=== PATIENT | female | born 1985 | race Caucasian/White ===

== ENCOUNTER → 2018-04-05 08:50 | Outpatient (CLI) | payer OTHER, SELFPAY ==
[2018-04-05 10:08] LABS: HCG,Quantitative 142 mIU/mL
== END ==
PROVIDERS: Visit Provider Nurse Practitioner Obstetrics & Gynecology
DX: Z32.00 Encounter for pregnancy test, result unknown (principal)
CPT/HCPCS: 36415; 84702

== ENCOUNTER → 2018-04-15 11:13 | Outpatient (CLI) | payer OTHER, SELFPAY ==
[2018-04-15 13:15] LABS: HCG,Quantitative 7304 mIU/mL
== END ==
PROVIDERS: Family Provider Family Medicine; Visit Provider Nurse Practitioner Obstetrics & Gynecology
DX: Z32.00 Encounter for pregnancy test, result unknown (principal)
CPT/HCPCS: 36415; 84702

== ENCOUNTER → 2018-04-24 17:05 | Outpatient (CLI) | payer OTHER, SELFPAY ==
[2018-04-24 17:47] LABS: Basophils % 0.3 % (0.1-2.0); Eosinophils # 0.2 K/mm3 (0.0-0.4); Eosinophils % 1.4 % (0.1-12.0); Hematocrit 37.9 % (37.0-47.0); Hemoglobin 12.9 g/dL (12.2-16.2); Mean Corpuscular Hemoglobin 29.4 pg (27.0-31.2); Mean Corpuscular Volume 86.3 fl (81-99); Mean Platelet Volume 7.3 fl (7.4-10.4); Monocytes # 0.5 K/mm3 (0.1-1.0); Monocytes % 4.7 % (1.7-9.3); Neutrophils # 8.4 K/mm3 (1.8-7.8); Neutrophils % 75.6 % (37.0-80.0); Platelet Count 230 K/mm3 (142-424); Red Blood Count 4.39 M/mm3 (4.20-5.40); Red Cell Distribution Width 13.6 % (11.5-17.5); White Blood Count 11.1 K/mm3 (4.8-10.8)
[2018-04-26 08:23] LABS: HIV Screen 4th Generation wRfx Non Reactive (Non Reactive)
[2018-04-26 13:14] LABS: Hepatitis B Surface Antigen Negative (Negative); Hepatitis C Antibody <0.1 s/co ratio (0.0-0.9); Rapid Plasma Reagin Ab Titer Non Reactive (NonRea<1:1)
== END ==
PROVIDERS: Family Provider Family Medicine; PCP Family Medicine; Visit Provider Nurse Practitioner Obstetrics & Gynecology
DX: Z34.90 Encounter for supervision of normal pregnancy, unspecified, unspecified trimester (principal)
CPT/HCPCS: 36415; 85025; 86592; 86703; 86762; 86850; 87340; 87380; G0432

== ENCOUNTER → 2018-05-03 09:44 | Outpatient (CLI) | payer OTHER, SELFPAY ==
--- NOTE | 2018-05-03 09:47 | US_ITS ---
US OB transvaginal HISTORY: ITS.REASON: US OB Dates ORDERING PHYSICIAN: Ferdinand Cyr MD PATIENT AGE: 32 years COMPARISON: None FINDINGS: An intrauterine gestational sac is present with a pole with a crown-rump length of 1.59cm correlating to gestational age of 8w0d. heart tones are present with an FHR of 178 bpm's. Yolk sac is noted. Adnexa: 1.6 cm left corpus luteum cyst. IMPRESSION: Live intrauterine gestation at 8 weeks 0 days. Estimated due date by ultrasound is 12/13/2018
== END ==
PROVIDERS: Family Provider Family Medicine; PCP Family Medicine; Visit Provider Nurse Practitioner Obstetrics & Gynecology
DX: O26.841 Uterine size-date discrepancy, first trimester (principal)
CPT/HCPCS: 76817

== ENCOUNTER → 2018-07-26 13:55 | Outpatient (CLI) | payer OTHER, SELFPAY ==
--- NOTE | 2018-07-26 13:56 | US_ITS ---
US OB /maternal detail: INDICATION: ITS.REASON: US OB Complete for 20 wk + Anatomy Scan ORDERING PHYSICIAN: Ferdinand Cyr MD PATIENT AGE: 32 years TECHNIQUE: ultrasound transabdominal scanning. COMPARISON: No previous relevant studies. FINDINGS: Single viable intrauterine gestation. Cephalic position. Placenta: Posterior placenta grade 1. There is average amount fluid. The cervix appears satisfactory. Closed and measuring 4 cm in length. Complete survey performed and was unremarkable on the submitted images as in PACS. No discrete anomalies identified on survey imaging by technologist. Active fetus. Three-vessel cord with satisfactory umbilical cord insertion. 4- chamber heart noted. Survey of brain & ventricles unremarkable. Face and neck survey unremarkable. Diaphragm and chest views unremarkable. Abdomen: Both kidneys noted and unremarkable. Stomach noted and satisfactory. Spine: Survey of the spine satisfactory with no anomalies identified nor imaged. Both arms and legs noted. Amniotic Fluid: Adequate. Maternal adnexa: No significant findings. Measurements: Average ultrasound age 20 weeks 1 day. Gestational Age 20 weeks 0 days. Estimated due date by ultrasound age 412/12/2018. Estimated weight 346 g grams. BPD = 19 weeks 5 days OFD = 20 weeks 6 days HC = 19 weeks 5 days AC = 20 weeks 5 days FL = 20 weeks 1 day Growth Percentile= 64% Heart Rate = 149 BPM Cerebellum = 20 weeks 2 days Humerus = 21 weeks 0 days HC/AC is 1.10. CI is 73%. FL/BPD is 72%. FL/AC is 21%. IMPRESSION: There is a single live fetus which is in supine presentation with an average ultrasound age of 20 weeks and 1 day. No obvious anomalies. heart and body motion noted. Posterior grade 1 placenta. Please see above for details
== END ==
PROVIDERS: PCP Family Medicine; Visit Provider Nurse Practitioner Obstetrics & Gynecology
DX: Z36.0 Encounter for antenatal screening for chromosomal anomalies (principal)
CPT/HCPCS: 76811

== ENCOUNTER → 2018-09-12 08:46 | Outpatient (CLI) | payer OTHER, SELFPAY ==
[2018-09-12 09:09] LABS: Glucose,Fasting 127 mg/dL (60-105)
[2018-09-12 11:33] LABS: Glucose 1 Hour 189 mg/dL (74-106)
== END ==
PROVIDERS: Visit Provider Nurse Practitioner Obstetrics & Gynecology
DX: Z34.90 Encounter for supervision of normal pregnancy, unspecified, unspecified trimester (principal); Z3A.26 26 weeks gestation of pregnancy
CPT/HCPCS: 36415; 82951

== ENCOUNTER → 2018-09-13 08:11 | Outpatient (CLI) | payer OTHER, SELFPAY ==
[2018-09-13 08:32] LABS: Glucose,Fasting 129 mg/dL (60-105)
[2018-09-13 10:55] LABS: Glucose 1 Hour 225 mg/dL (74-106)
[2018-09-13 11:04] LABS: Glucose 2 Hour 204 mg/dL (74-106)
[2018-09-13 12:16] LABS: Glucose 3 Hour 164 mg/dL (74-106)
== END ==
PROVIDERS: Visit Provider Nurse Practitioner Obstetrics & Gynecology
DX: Z34.90 Encounter for supervision of normal pregnancy, unspecified, unspecified trimester (principal)
CPT/HCPCS: 36415; 82951

== ENCOUNTER → 2018-11-11 17:44 | Outpatient (CLI) | payer OTHER, SELFPAY | LOC: LAB 17:45 → LAB.DROPOF 17:48 | PROVIDERS: Visit Provider Internal Medicine Cardiovascular Disease | DX: Z34.90 Encounter for supervision of normal pregnancy, unspecified, unspecified trimester (principal); Z3A.35 35 weeks gestation of pregnancy | CPT/HCPCS: 86403 ==

== ENCOUNTER 2018-11-25 11:09 | Outpatient (CLI) | payer OTHER, SELFPAY ==
[2018-11-25 11:31] VITALS: BP 126/82; PULSE 103; RESP 18; TEMP 36.6; O2SAT 99; BMI 36.1
== END 2018-11-25 11:45 | disposition home or self-care (01) ==
LOC: OBOUT 11:10 → OB 11:11
PROVIDERS: PCP Family Medicine; Visit Provider Nurse Practitioner Obstetrics & Gynecology
DX: O26.893 Other specified pregnancy related conditions, third trimester (principal); Z3A.37 37 weeks gestation of pregnancy
CPT/HCPCS: 59025

== ENCOUNTER 2018-11-28 05:21 | Inpatient (IN) ==
[2018-11-28 06:08] LABS: Basophils % 0.1 % (0.1-2.0); Eosinophils # 0.2 K/mm3 (0.0-0.4); Eosinophils % 1.4 % (0.1-12.0); Hematocrit 35.9 % (37.0-47.0); Hemoglobin 12.4 g/dL (12.2-16.2); Lymphocytes # 2.1 K/mm3 (0.7-4.5); Lymphocytes % 15.8 % (10-50); Mean Corpuscular HGB Conc 34.6 g/dL (31.8-35.4); Mean Corpuscular Hemoglobin 29.4 pg (27.0-31.2); Mean Corpuscular Volume 84.9 fl (81-99); Mean Platelet Volume 7.9 fl (7.4-10.4); Monocytes # 0.7 K/mm3 (0.1-1.0); Monocytes % 5.5 % (1.7-9.3); Neutrophils # 10.2 K/mm3 (1.8-7.8); Neutrophils % 77.2 % (37.0-80.0); Platelet Count 185 K/mm3 (142-424); Red Blood Count 4.23 M/mm3 (4.20-5.40); Red Cell Distribution Width 15.5 % (11.5-17.5); White Blood Count 13.2 K/mm3 (4.8-10.8)
[2018-11-28 06:11] LABS: Anion Gap 15.8 mEq/L (5-15); Calcium 8.8 mg/dL (8.5-10.1); Potassium 3.8 mmoL/L (3.5-5.1)
--- NOTE | 2018-11-28 08:24 | Progress Note ---
[facility] Anesthesia Checklist - Structural Data Admitted From: Home Planned Operative Procedure/s: c/section Consent for Planned Operative Procedure(s) Verified: Yes - Airway Assessment C-Spine Mobility Assessed: Yes TMJ Mobility Assessed: Yes Dentition: Good Dentition - Neurological Assessment Level of Consciousness: Awake, Alert, Appropriate - Anesthesia Plan Anesthesia Risk discussed: Yes Anesthesia Plan: Verified ASA Class: II Anesthesia Type: Spinal [facility] History I have reviewed the patient's past medical history: Yes *Have you ever received a pneumonia vaccine?: No *Have you received a flu vaccine this season?: Yes Other Surgeries: Yes: No Previous Surgery, Amputation: No Fractures: No - *Social History Smoking Status: Never smoker Alcohol Intake: never Substance Use Type: denies use *Occupational Status:: employed Family Hx:: No significant family history Para: 2
--- NOTE | 2018-11-28 08:25 | Progress Note ---
[facility] Anesthesia Record Part I Intake, IV Amount: 1,500 Estimated blood loss (mL): 600 Urine output (mL): 200 Blood Pressure: 106/56 SaO2: 98 Pulse Rate: 98 Respiratory Rate: 12 Temperature: 97.2 F Patient is:: Awake, Stable Stable to PACU at:: 08:20
--- NOTE | 2018-11-28 08:26 | Progress Note ---
[facility] Anesthesia Record Part II Discharge Time: 08:50 Destination: Obstetric PACU nurse assessment reviewed?: Yes Patient Condition:: Good Anesthesia Complications:: None Swallowing reflex intact?: Yes Cyanosis?: No
--- NOTE | 2018-11-28 08:30 | Operative Note ---
Date of procedure: 11/28/18 Pre-op Diagnosis:: Term , large for gestational age, gestational diabetes on insulin and poorly controlled, polyhydramnios, previous section, desire for sterilization Post-op Diagnosis:: Term , large for gestational age, gestational diabetes on insulin, poorly controlled, polyhydramnios, previous section, desire for sterilization Procedure performed:: Repeat lower segment transverse section, bilateral salpingectomy Surgeon:: Ferdinand Cyr MD Janitorial Account Manager(s):: Kourtney Hartman LANDFILL GAS TECHNICIAN:: Anselmo Lopez Anesthesia: spinal Estimated blood loss (mL): 600 Clinical Note:: She is a 33-year-old 3 para 1 aborta 1 who was 37 and 6 weeks gestational age. She has been followed by [facility] high risk obstetrics. She has gestational diabetes and has been on insulin. Her sugars have been poorly controlled. She had a large for gestational age . After having discussed the risks and benefits with the patient as well as high risk obstetrics it was decided that we should deliver at 37 weeks and 6 days. Operative findings:: She delivered a liveborn female child at 7:40 AM on the morning of November 28, 2018. The baby weighed 11 pounds 4 ounces and was 21-1/2 inches long. She had Apgars of 9 at 1 minute and 9 at 5 minutes. pH was 7.32. Ovaries and tubes appeared normal. Operative note:: She was taken to the operating room where spinal anesthesia was found be adequate. She was prepped and draped in normal sterile fashion in the supine position with a leftward tilt. A Ramirez catheter was in the bladder. A Pfannenstiel skin incision was made with knife then carried through to the underlying layer of fascia with cautery. The fascia was opened in the midline with cautery and extended laterally using Steinberg scissors. Reyna clamps were applied to the superior aspect of the fascial incision which was tented up and the underlying rectus muscles dissected off using cautery. The [place] clamps were then applied to the inferior aspect of the fascial incision which in a similar fashion was tented up and the underlying rectus muscles dissected off using cautery. The rectus muscles were then in the midline, the peritoneum identified, and entered sharply with Metzenbaum scissors. This incision was then extended superiorly and inferiorly with cautery. We had good visualization of the bladder inferiorly. The Alec device was then placed within the abdominal cavity. The bladder peritoneum was then opened in the midline and extended laterally using Metzenbaum scissors. A bladder flap was created digitally. Transverse incision was made through the uterine muscle to the amnion. This incision was then extended laterally using fingers traction. The amnion was entered sharply with knife. There was clear amniotic fluid. The 's head was then delivered atraumatically. A loose nuchal cord was then reduced. This was followed by the anterior shoulder and the rest of the 's body atraumatically. The oropharynx and nasopharynx were bulb suctioned. The was then handed off to Dr. Manjarrez who assigned Apgars of 9 at 1 minute and 9 at 5 minutes. We then obtained cord blood as well as cord pH. The pH was 7.32. Using gentle traction on the cord and countertraction on the fundus I was able to easily deliver the placenta intact. It had a normal three-vessel cord. The uterus was then cleared of clots and debris . The uterus was then exteriorized. The uterine incision was then closed using running 0 Vicryl suture in a locked fashion. A second layer of the same suture was used to imbricate the first layer. The bladder peritoneum was then closed using running 2-0 Vicryl suture in a locked fashion. The gutters and cul-de-sac were then cleared of clots and debris . Once again hemostasis was assured. We then performed a bilateral salpingectomy by grasping the distal end of the right to using cautery I cauterized along the mesosalpinx. I then remove the tube at the corneal. This was similarly performed on the patient's left side. After assuring hemostasis the uterus was then returned to the abdominal cavity. The peritoneum was grasped with Diana clamps and closed using running 2-0 Vicryl suture. The rectus muscles were then reapproximated using running 0 Vicryl suture. The fascia was closed using running #1 Vicryl suture. The subcutaneous tissues were then irrigated with warm water followed by closure Wilma's fascia using running 2-0 Monocryl suture. The skin was closed with paul. I then cleaned the skin with Hibiclens. Sterile dressings were applied. She tolerated the procedure well and was taken to the recovery room in excellent condition. All sponges minute and needle counts were correct. Estimate a blood loss was approximately 600 mL. Condition: stable Disposition: PACU Specimens:: Products of conception, bilateral fallopian tubes Complications:: None
[2018-11-29 05:37] LABS: Basophils % 0.1 % (0.1-2.0); Eosinophils # 0.1 K/mm3 (0.0-0.4); Eosinophils % 0.5 % (0.1-12.0); Hematocrit 33.8 % (37.0-47.0); Hemoglobin 11.4 g/dL (12.2-16.2); Lymphocytes # 1.5 K/mm3 (0.7-4.5); Lymphocytes % 11.8 % (10-50); Mean Corpuscular HGB Conc 33.7 g/dL (31.8-35.4); Mean Corpuscular Hemoglobin 29.5 pg (27.0-31.2); Mean Corpuscular Volume 87.4 fl (81-99); Mean Platelet Volume 8.9 fl (7.4-10.4); Monocytes # 0.7 K/mm3 (0.1-1.0); Monocytes % 5.5 % (1.7-9.3); Neutrophils # 10.5 K/mm3 (1.8-7.8); Neutrophils % 82.1 % (37.0-80.0); Platelet Count 154 K/mm3 (142-424); Red Blood Count 3.86 M/mm3 (4.20-5.40); Red Cell Distribution Width 15.4 % (11.5-17.5); White Blood Count 12.8 K/mm3 (4.8-10.8)
--- NOTE | 2018-11-29 09:42 | Progress Note ---
Internal Medicine - PN: Subj *Date: 11/29/18 *Time: 09:27 Interval history: She continues to do well. She is eating and drinking and ambulating. Her pain is well controlled. She is breast-feeding. Her lochia is normal. Exam Vital signs and Labs for Last 24 Hours: Temp Pulse Resp BP Pulse Ox 98.3 F 98 H 18 123/67 100 11/28/18 20:27 11/28/18 20:27 11/28/18 20:27 11/28/18 20:27 11/28/18 20:27 Laboratory Results - last 24 hr 11/28/18 07:30: Urine Color Yellow, Urine Appearance Clear, Urine pH 5.5, Ur Specific [place] 1.025, Urine Protein Negative, Urine Glucose (UA) Negative, Urine Ketones Trace, Urine Blood Negative, Urine Nitrate Negative, Urine Bilirubin Negative, Urine Urobilinogen 0.2, Ur Leukocyte Esterase Negative, Urine WBC Occasional, Ur Squamous Epith Cells Occasional, Urine Bacteria 1+ 11/28/18 20:35: POC Glucose 160 H 11/29/18 05:20: WBC 12.8 H, RBC 3.86 L, Hgb 11.4 L, Hct 33.8 L, MCV 87.4, MCH 29.5, MCHC 33.7, RDW 15.4, Plt Count 154, MPV 8.9, Neut % (Auto) 82.1 H, Lymph % (Auto) 11.8, [place] % (Auto) 5.5, Eos % (Auto) 0.5, Baso % (Auto) 0.1, Neut # (Auto) 10.5 H, Lymph # (Auto) 1.5, [place] # (Auto) 0.7, Eos # (Auto) 0.1, Baso # (Auto) 0.0 11/29/18 05:20: Random Glucose 117 H I & O for Last 24 hours: Intake & Output 11/26/18 11/27/18 11/28/18 11/29/18 11:59 11:59 11:59 11:59 Intake Total 1730 / 1730 Output Total 110 / 110 Balance 1620 / 1620 Weight 218 lb - Constitutional no acute distress Assessment and Plan (1) Gestational diabetes Current visit: Yes Status: Acute Category: Medical Code(s): O24.419 - Gestational diabetes mellitus in , unspecified control (2) Previous section complicating , with delivery Current visit: Yes Status: Acute Category: Medical Code(s): O34.219 - Maternal care for unspecified type scar from previous delivery (3) Sterilization Current visit: Yes Status: Acute Category: Medical Code(s): Z30.2 - Encounter for sterilization (4) Polyhydramnios affecting Current visit: Yes Status: Acute Category: Medical Code(s): O40.9XX0 - Polyhydramnios, unspecified trimester, not applicable or unspecified (5) Large for gestational age fetus Current visit: Yes Status: Acute Category: Medical - Assessment and plan all Dx Assessment and Plan for all problems:: She continues to do well. We will send her home in 48 hours.
--- NOTE | 2018-11-29 15:48 | Pharmacy Consult Notes ---
[facility] Pharmacy VTE Monitoring - Patient Demographics Admission date: 11/28/18 Report Date: 11/29/18 Time: 15:47 Allergies/Adverse Reactions: Patient Allergies No Known Allergies Allergy (Verified 11/27/18 09:13) Height: 1.65 m Weight: 98.883 kg Patient Problems: Current Active Problems Gestational diabetes (Acute) Previous section complicating , with delivery (Acute) Sterilization (Acute) Polyhydramnios affecting (Acute) Large for gestational age fetus (Acute) - VTE Risk Labs: VTE Related Lab Results Hgb 11.4 g/dL (12.2-16.2) L 11/29/18 05:20 Hct 33.8 % (37.0-47.0) L 11/29/18 05:20 Plt Count 154 K/mm3 (142-424) 11/29/18 05:20 BUN 11 mg/dL (7-18) 11/28/18 05:48 Creatinine 0.66 mg/dL (0.55-1.02) 11/28/18 05:48 Estimated Creat Clear 187 mL/min (50-200) 11/28/18 05:48 - Prophylaxis VTE Prophylaxis Ordered?: Yes Types of VTE Prophylaxis: IPCS Thigh High Location of Applied Device: Bilateral Lower Extremeties
--- NOTE | 2018-11-30 10:28 | Progress Note ---
Internal Medicine - PN: Subj *Date: 11/30/18 *Time: 10:27 Interval history: She continues to do well. She is eating and drinking and ambulate in. She is breast-feeding. Her lochia is normal. Her pain is well controlled. Exam Vital signs and Labs for Last 24 Hours: Temp Pulse Resp BP Pulse Ox 98.3 F 98 H 18 123/67 100 11/28/18 20:27 11/28/18 20:27 11/28/18 20:27 11/28/18 20:27 11/28/18 20:27 Laboratory Results - last 24 hr 11/29/18 22:48: POC Glucose 126 H I & O for Last 24 hours: Intake & Output 11/27/18 11/28/18 11/29/18 11/30/18 11:59 11:59 11:59 11:59 Intake Total 1730 / 1730 Output Total 110 / 110 Balance 1620 / 1620 Weight 218 lb 218 lb - Constitutional no acute distress Assessment and Plan (1) Gestational diabetes Current visit: Yes Status: Acute Category: Medical Code(s): O24.419 - Gestational diabetes mellitus in , unspecified control (2) Previous section complicating , with delivery Current visit: Yes Status: Acute Category: Medical Code(s): O34.219 - Maternal care for unspecified type scar from previous delivery (3) Sterilization Current visit: Yes Status: Acute Category: Medical Code(s): Z30.2 - Encounter for sterilization (4) Polyhydramnios affecting Current visit: Yes Status: Acute Category: Medical Code(s): O40.9XX0 - Polyhydramnios, unspecified trimester, not applicable or unspecified (5) Large for gestational age fetus Current visit: Yes Status: Acute Category: Medical - Assessment and plan all Dx Assessment and Plan for all problems:: She is doing very well today. We will plan to send her home tomorrow.
[2018-11-30 20:13] VITALS: BP 139/68
--- NOTE | 2018-12-01 11:03 | Discharge Summary ---
General - General Admission date:: 11/28/18 Discharge date: 12/01/18 HPI HPI: She is a 33-year-old 3 now para 2 aborta 1 who was 37 and 6 weeks gestational age. She is been followed at [facility] for gestational diabetes and has requiring increased insulin usage. She was known to have a large for gestational age as well as mild polyhydramnios. As result of that we elected to deliver her early. She also expresses desire for sterilization. Hospital Course Hospital Course: On November 28, 2018 she underwent a repeat lower segment transverse section and bilateral salpingectomy. She delivered a liveborn female child that weighed 11 pounds 4 ounces. Apgars were 9 at 1 and 9 at 5 minutes. She has done well and has remained afebrile throughout her hospital ization. She is eating and drinking and ambulating. She is bottlefeeding. Her lochia is normal. She has a positive blood, she is rubella immune and was group B streptococcus negative. Her director of accreditation is Dr. Manjarrez. She is discharged home to follow-up with me in approximately 2 weeks time. She will continue with her vitamins and iron. She is given the usual instructions with respect to limiting her activity, driving and sexual activity. She was given a prescription for Percocet 5/325 number 6 tablets. Her condition on discharge is stable. Rhogam Administration: Not Indicated Objective Vital signs: Temp Pulse Resp BP Pulse Ox 98.1 F 88 18 139/68 99 11/30/18 19:50 11/30/18 19:50 11/30/18 19:50 11/30/18 19:50 11/30/18 19:50 no acute distress DS: Diagnosis - Discharge Diagnosis (1) Gestational diabetes Status: Acute (2) Previous section complicating , with delivery Status: Acute (3) Sterilization Status: Acute (4) Polyhydramnios affecting Status: Acute (5) Large for gestational age fetus Status: Acute Discharge Plan - Patient Discharge Instructions ACTIVITY: No heavy lifting DIET: continue same diet - Follow up Plan Disposition: Home, Self-Longterm Medications: Home Medications Medication Instructions Recorded Confirmed Type 1 tab PO DAILY 04/24/18 11/28/18 History vitamin,calcium,ukdbsiji-qmzl-urfcp acid tablet Insulin Aspart [Novolog] 10 units SQ AC 11/28/18 11/28/18 History Insulin Detemir [Levemir 100 22 units SQ HS 11/28/18 11/28/18 History units/mL 10mL vial] Prescriptions/Medication Reconciliation: Continue vitamin,calcium,dbjyggwh-bdab-pmdvj acid tablet 1 tab PO DAILY Discontinued Insulin Detemir [Levemir 100 units/mL 10mL vial] 22 units SQ HS Insulin Aspart [Novolog] 10 units SQ AC
== END 2018-12-01 12:30 | disposition home or self-care (01) | DRG 785 ==
LOC: OB 05:21
PROVIDERS: ADMIT Nurse Practitioner Obstetrics & Gynecology; ATTEND Nurse Practitioner Obstetrics & Gynecology

== ENCOUNTER → 2018-12-12 09:53 | Outpatient (CLI) | payer OTHER, SELFPAY ==
--- NOTE | 2018-12-12 10:42 | CT_ITS ---
CT abdomen pelvis wo/w con CLINICAL INDICATION: Right lower quadrant pain. Recent surgery ITS.REASON: CT W/WO Con- R/O Abscess Hernia post ORDERING PHYSICIAN: Ferdinand Cyr MD PATIENT AGE: 33 years COMPARISON: None TECHNIQUE: Axial images obtained without and with contrast with sagittal and coronal reformats. All CT scans at the facility use one or more dose reduction, viz: automated exposure control, ma/kV adjustment per patient size (including targeted exams where dose is matched to indication, i.e. head), or iterative reconstruction technique. PROCEDURE: Oral Contrast: Gastroview IV Contrast: 75 mL's Optiray 350. FINDINGS: Lower thorax: The lung bases are clear. The liver and gallbladder have an unremarkable appearance. There is splenomegaly with the spleen measuring 14 cm AP and 11 cm transverse. The pancreas and adrenal glands are unremarkable. No renal or ureteral calculi. No hydronephrosis. No intestinal obstruction or free air. There is mild eventration of the ventral anterior abdominal wall but no attila herniation. The appendix is not clearly delineated. Increased soft tissue density is present in the lower abdominal region on both right and left sides at the anterior adnexal region and may be related to prominent adnexa with small amount of fluid from the recent . The uterus is enlarged with low density changes centrally in keeping with patient's post gravid state. There is mild thickening of the lower anterior abdominal wall. No evidence of abdominal wall hematoma. The patient has had recent . There is minimal stranding of the fat anterior to the uterus. No abscess is evident. There is a small amount fluid in the cul-de-sac. No acute bony anomalies apparent. IMPRESSION: 1. Enlarged uterus with low density changes centrally consistent with post gravid state. Postsurgical changes are present from the . No abscess or focal abdominal wall hematoma apparent. 2. The appendix is not clearly delineated however, no enlarged appendix is identified.
== END ==
PROVIDERS: PCP Family Medicine; Visit Provider Nurse Practitioner Obstetrics & Gynecology
DX: K43.2 Incisional hernia without obstruction or gangrene (principal); T81.49XA Infection following a procedure, other surgical site, initial encounter
CPT/HCPCS: 74178; Q9967

== ENCOUNTER → 2019-09-30 13:17 | Outpatient (POV) | payer OTHER, SELFPAY | PROVIDERS: Visit Provider Dermatology | DX: Z00.00 Encounter for general adult medical examination without abnormal findings (principal) ==